=== PATIENT | female | born 1955 | race Caucasian/White ===

== ENCOUNTER 2016-09-28 21:50 | Emergency (ER) | payer OTHER ==
[~2016-09-28] VITALS: Ht 154.9 cm; Wt 100.7 kg
[~2016-09-28 21:50] MED LIST: ASPIRIN81 M1 PO; CARAFATE1 GM PO; CELEBREX200 MG PO; ENDOCET 5-3251 EACH PO; ESCITALOPRAM OX20 MG PO; Ecotrin PO; FLECTOR 1.3%1 PATC1 TD; FLEXERIL10 MG PO; FORTAMET1000 M1 PO; GLIPIZIDE XL10 M1 PO; GLUCOPHAGE1000 MG PO; GLUCOTROL XL10 MG PO; HYDROCHLOROTHIA25 MG PO; INDOCIN25 MG PO; JANUVIA100 MG PO; LISINOPRIL-HCT1 EAC3 PO; LO-DOSE ASPIRIN81 M1 PO; LOPRESSOR100 M1 PO; LOPRESSOR50 MG PO; MELOXICAM15 MG PO; METOPROLOL SUCC25 MG PO; NAPROSYN500 MG PO; NEURONTIN100 MG PO; NIFEDIPINE ER30 MG PO; NORCO 7.5/321 TABLET PO; PANTOPRAZOLE SO40 MG PO; PEPCID20 MG PO; PRILOSEC20 MG PO; PROAIR HFA8.5 GM IH; PROZAC40 MG PO; REGLAN10 M1 PO; SIMVASTATIN40 M1 PO; TOPROL XL100 MG PO; TRAMADOL HCL50 MG PO; TYLENOL REGULA325 MG PO; ULTRAM50 MG PO; VALIUM2 MG PO; VITAMIN D31000 UNIT PO; WELLBUTRIN SR150 MG PO; WELLBUTRIN XL300 MG PO; WELLBUTRIN75 MG; ZESTORETIC 20-1 EAC1 PO; ZOCOR20 MG PO; ZOCOR40 MG PO; lisinopril/HCTZ PO
[2016-09-28 22:38] LABS: HEMATOCRIT 43.2 % (36.0-46.0); MCH 28.9 PG (29.0-34.0); MCHC 33.1 G/DL (30.0-36.0); MCV 87.3 FL (83-99); MEAN PLAT.VOLUME 10.8 uM^3 (9.5-12.4); PLATELET COUNT 275 K/uL (156-360); RBC DIS.WIDTH-CV 13.1 % (11.8-14.6); RBC DIS.WIDTH-SD 41.5 % (39-53); RED BLOOD COUNT 4.95 M/uL (3.80-5.20); WHITE BLOOD COUNT 12.4 K/uL (4.1-10.2)
[2016-09-28 22:47] LABS: CHLORIDE 104 mEq/L (99-109); POTASSIUM 3.4 mEq/L (3.7-5.4); SODIUM 143 mEq/L (136-147)
[2016-09-28 22:49] LABS: GLUCOSE 116 mg/dL (70-99)
[2016-09-28 22:51] LABS: ANION GAP 10 MEQ/L (2-14); TOTAL BILIRUBIN 0.3 mg/dL (0.0-1.0)
[2016-09-28 22:53] LABS: ALKALINE PHOSPHATASE 61 IU/L (3-129); GFR ESTIMATE (CALCULATED) > 59 mL/min/
[2016-09-28 22:54] LABS: UREA NITROGEN (BUN) 13 mg/dL (9-23)
[2016-09-29 00:07] LABS: ADD MIUA? NO; BILIRUBIN NEGATIVE; BLOOD NEGATIVE; COLOR YELLOW ((YELLOW)); GLUCOSE (STRIP) NEGATIVE; KETONES NEGATIVE; LEUKOCYTES NEGATIVE; NITRITE NEGATIVE; PROTEIN (STRIP) NEGATIVE; SPECIFIC GRAVITY 1.017 (1.000-1.030); UCUL ADDED? NO; UROBILINOGEN 0.2 MG/DL (0.2-1.0)
[2016-09-29 03:08] LABS: TROP-I INTERPRETATION NEGATIVE; TROPONIN-I < 0.01 ng/mL (0.0-0.30)
[2016-09-29] MEDS ORDERED: PROTONIX40 MG PO (03:14)
[2016-09-29 03:20] VITALS: BP 133/83
[2016-09-29] MEDS ORDERED: MAALOX ADVANCE355 ML PO (03:20)
== END 2016-09-29 03:27 | disposition home or self-care (01) ==
LOC: EME 21:50
PROVIDERS: Emergency Medicine
DX: K27.9 Peptic ulcer, site unspecified, unspecified as acute or chronic, without hemorrhage or perforation (principal); R10.9 Unspecified abdominal pain; R07.9 Chest pain, unspecified; J45.909 Unspecified asthma, uncomplicated; E11.9 Type 2 diabetes mellitus without complications; E78.5 Hyperlipidemia, unspecified; I10 Essential (primary) hypertension; K21.9 Gastro-esophageal reflux disease without esophagitis; Z79.84 Long term (current) use of oral hypoglycemic drugs
CPT/HCPCS: 74177; 80053; 81003; 84484; 85027; 93005; 99281; 99285

== ENCOUNTER 2016-11-12 15:08 | Emergency (ER) | payer OTHER ==
[~2016-11-12] VITALS: Ht 154.9 cm; Wt 99.7 kg
[~2016-11-12 15:08] MED LIST changes: +MAALOX ADVANCE355 ML PO; +PROTONIX40 MG PO
[2016-11-12 15:47] LABS: MCH 29.3 PG (29.0-34.0); MCHC 33.7 G/DL (30.0-36.0); MCV 86.9 FL (83-99); PLATELET COUNT 258 K/uL (156-360); RBC DIS.WIDTH-CV 12.9 % (11.8-14.6); RBC DIS.WIDTH-SD 40.7 % (39-53); RED BLOOD COUNT 4.95 M/uL (3.80-5.20); WHITE BLOOD COUNT 9.5 K/uL (4.1-10.2)
[2016-11-12 15:58] LABS: CHLORIDE 104 mEq/L (99-109); SODIUM 142 mEq/L (136-147)
[2016-11-12 15:59] LABS: GLUCOSE 96 mg/dL (70-99)
[2016-11-12 16:01] LABS: ANION GAP 13 MEQ/L (2-14)
[2016-11-12 16:03] LABS: GFR ESTIMATE (CALCULATED) > 59 mL/min/
[2016-11-12 16:04] LABS: UREA NITROGEN (BUN) 14 mg/dL (9-23)
[2016-11-12 18:19] LABS: ERTH.SED.RATE 12 MM/HR (0-30)
[2016-11-12] MEDS ORDERED: FIORICET 50-301 EACH PO (18:55)
[2016-11-12] MEDS ORDERED: VALIUM2 MG PO (18:55)
[2016-11-12 19:07] VITALS: BP 140/85
[2016-11-13 09:41] LABS: LYME DISEASE SEROLOGY SCREEN NEGATIVE (NEGATIVE)
== END 2016-11-12 19:08 | disposition home or self-care (01) ==
LOC: EME 15:08
PROVIDERS: Physician Assistant
DX: R51 Headache (principal); M50.30 Other cervical disc degeneration, unspecified cervical region; M54.12 Radiculopathy, cervical region; E11.9 Type 2 diabetes mellitus without complications; E78.5 Hyperlipidemia, unspecified; I10 Essential (primary) hypertension; Z88.6 Allergy status to analgesic agent; Z87.891 Personal history of nicotine dependence
CPT/HCPCS: 70450; 71020; 72125; 80048; 85027; 85651; 86618; 93005; 99281; 99284; J2930

== ENCOUNTER 2016-11-16 21:49 | Emergency (ER) | payer OTHER ==
[~2016-11-16] VITALS: Ht 154.9 cm; Wt 101.5 kg
[~2016-11-16 21:49] MED LIST changes: +FIORICET 50-301 EACH PO
[2016-11-16] MEDS ORDERED: MOBIC7.5 MG PO (23:45)
[2016-11-16] MEDS ORDERED: CEFDINIR300 MG PO (23:45)
[2016-11-16 23:53] VITALS: BP 155/92
== END 2016-11-16 23:55 | disposition home or self-care (01) ==
LOC: EME 21:49
DX: M79.1 Myalgia (principal); H66.92 Otitis media, unspecified, left ear; E11.40 Type 2 diabetes mellitus with diabetic neuropathy, unspecified; H60.92 Unspecified otitis externa, left ear; R51 Headache; M54.2 Cervicalgia; M54.9 Dorsalgia, unspecified; W01.10XA Fall on same level from slipping, tripping and stumbling with subsequent striking against unspecified object, initial encounter; R42 Dizziness and giddiness; I10 Essential (primary) hypertension; E78.5 Hyperlipidemia, unspecified; J45.909 Unspecified asthma, uncomplicated; Z79.84 Long term (current) use of oral hypoglycemic drugs; Z87.891 Personal history of nicotine dependence
CPT/HCPCS: 99281; 99284

== ENCOUNTER 2017-02-06 00:50 | Emergency (ER) | payer OTHER ==
[~2017-02-06] VITALS: Ht 154.9 cm; Wt 99.4 kg
[~2017-02-06 00:50] MED LIST changes: +CEFDINIR300 MG PO; +MOBIC7.5 MG PO
[2017-02-06 01:55] LABS: ADD MIUA? NO; BILIRUBIN NEGATIVE; BLOOD NEGATIVE; COLOR STRAW ((YELLOW)); GLUCOSE (STRIP) NEGATIVE; KETONES NEGATIVE; LEUKOCYTES NEGATIVE; NITRITE NEGATIVE; PROTEIN (STRIP) NEGATIVE; SPECIFIC GRAVITY 1.009 (1.000-1.030); UCUL ADDED? NO; UROBILINOGEN 0.2 MG/DL (0.2-1.0)
[2017-02-06 02:07] LABS: HEMATOCRIT 40.5 % (36.0-46.0); MCH 28.9 PG (29.0-34.0); MCHC 33.3 G/DL (30.0-36.0); MCV 86.7 FL (83-99); MEAN PLAT.VOLUME 10.1 uM^3 (9.5-12.4); PLATELET COUNT 223 K/uL (156-360); RBC DIS.WIDTH-CV 13.1 % (11.8-14.6); RED BLOOD COUNT 4.67 M/uL (3.80-5.20); WHITE BLOOD COUNT 9.3 K/uL (4.1-10.2)
[2017-02-06 02:17] LABS: AMYLASE 41 IU/L (1-118); CHLORIDE 105 mEq/L (99-109); POTASSIUM 3.6 mEq/L (3.7-5.4); SODIUM 138 mEq/L (136-147)
[2017-02-06 02:19] LABS: GLUCOSE 75 mg/dL (70-99)
[2017-02-06 02:20] LABS: ANION GAP 8 MEQ/L (2-14)
[2017-02-06 02:21] LABS: TOTAL BILIRUBIN 0.5 mg/dL (0.0-1.0)
[2017-02-06 02:22] LABS: ALKALINE PHOSPHATASE 65 IU/L (3-129)
[2017-02-06 02:23] LABS: GFR ESTIMATE (CALCULATED) > 59 mL/min/
[2017-02-06 02:24] LABS: UREA NITROGEN (BUN) 21 mg/dL (9-23)
[2017-02-06 02:26] LABS: LIPASE 40 U/L (1.0-51.0)
[2017-02-06] MEDS ORDERED: BENTYL20 MG PO (03:39)
[2017-02-06] MEDS ORDERED: MOTRIN800 MG PO (03:39)
[2017-02-06] MEDS ORDERED: ZOFRAN4 MG PO (03:39)
[2017-02-06] MEDS ORDERED: LIDODERM 5% P1 PATCH TD (03:56)
[2017-02-06 04:45] VITALS: BP 123/70
== END 2017-02-06 04:45 | disposition home or self-care (01) ==
LOC: EME 00:50
PROVIDERS: Nurse Practitioner Family
DX: R10.11 Right upper quadrant pain (principal); R11.2 Nausea with vomiting, unspecified; R19.7 Diarrhea, unspecified; M25.511 Pain in right shoulder; K76.0 Fatty (change of) liver, not elsewhere classified; I10 Essential (primary) hypertension; E78.5 Hyperlipidemia, unspecified; J45.909 Unspecified asthma, uncomplicated; E11.9 Type 2 diabetes mellitus without complications; Z79.84 Long term (current) use of oral hypoglycemic drugs; Z90.710 Acquired absence of both cervix and uterus; Z87.891 Personal history of nicotine dependence
CPT/HCPCS: 76705; 80053; 81003; 82150; 83690; 85027; 99281; 99285

== ENCOUNTER 2017-02-14 22:37 | Emergency (ER) | payer OTHER ==
[~2017-02-14] VITALS: Ht 154.9 cm; Wt 101.2 kg
[~2017-02-14 22:37] MED LIST changes: +BENTYL20 MG PO; +LIDODERM 5% P1 PATCH TD; +MOTRIN800 MG PO; +ZOFRAN4 MG PO
[2017-02-14 22:42] VITALS: BP 141/81
[2017-02-14] MEDS ORDERED: VALIUM5 MG PO (23:35)
[2017-02-14] MEDS ORDERED: ULTRAM50 MG PO (23:35)
== END 2017-02-15 00:38 | disposition home or self-care (01) ==
LOC: EME 22:37 → EXP 22:37
DX: G89.29 Other chronic pain (principal); M54.12 Radiculopathy, cervical region; M25.511 Pain in right shoulder; M79.601 Pain in right arm; M54.6 Pain in thoracic spine
CPT/HCPCS: 72070; 99281; 99284; J1885

== ENCOUNTER 2017-02-20 00:48 | Emergency (ER) | payer OTHER ==
[~2017-02-20] VITALS: Ht 154.9 cm; Wt 101.1 kg
[~2017-02-20 00:48] MED LIST changes: +VALIUM5 MG PO
[2017-02-20] MEDS ORDERED: PERCOCET 5/31 TABLET PO (03:22)
[2017-02-20 03:31] VITALS: BP 162/82
== END 2017-02-20 03:31 | disposition home or self-care (01) ==
LOC: EME 00:48
DX: M54.12 Radiculopathy, cervical region (principal); I10 Essential (primary) hypertension; E78.00 Pure hypercholesterolemia, unspecified; E11.9 Type 2 diabetes mellitus without complications; Z79.84 Long term (current) use of oral hypoglycemic drugs; Z98.1 Arthrodesis status; Z87.891 Personal history of nicotine dependence
CPT/HCPCS: 71020; 99281; 99284

== ENCOUNTER 2017-03-04 21:50 | Observation (INO) | payer OTHER ==
[~2017-03-04] VITALS: Ht 154.9 cm; Wt 102.8 kg
[~2017-03-04 21:50] MED LIST changes: +PERCOCET 5/31 TABLET PO; -ZOCOR20 MG PO
[2017-03-04 23:10] LABS: EOSINOPHIL (%) 3.8 % (0-5); EOSINOPHIL COUNT 0.4 K/uL (0-0.3); HEMATOCRIT 38.7 % (36.0-46.0); IMMATURE GRANULOCYTE (%) 0.3 % (0.0-0.7); INSTRUMENT ABS NEUTROPHIL CT 6.7 K/uL; LYMPHOCYTE COUNT 2.3 K/uL (1.0-2.8); MCH 28.8 PG (29.0-34.0); MCHC 33.1 G/DL (30.0-36.0); MEAN PLAT.VOLUME 10.5 uM^3 (9.5-12.4); MONOCYTE (%) 4.4 % (3-12); MONOCYTE COUNT 0.4 K/uL (0-0.8); NEUTROPHIL COUNT 6.7 K/uL (1.8-6.4); PLATELET COUNT 182 K/uL (156-360); RBC DIS.WIDTH-CV 12.7 % (11.8-14.6); RBC DIS.WIDTH-SD 40.3 % (39-53); RED BLOOD COUNT 4.45 M/uL (3.80-5.20); WHITE BLOOD COUNT 9.8 K/uL (4.1-10.2)
[2017-03-04 23:17] LABS: D-DIMER ELISA < 150.00 ng/mLDDU (<230)
[2017-03-04 23:19] LABS: CHLORIDE 102 mEq/L (99-109); POTASSIUM 3.6 mEq/L (3.7-5.4); SODIUM 141 mEq/L (136-147)
[2017-03-04 23:21] LABS: GLUCOSE 248 mg/dL (70-99)
[2017-03-04 23:22] LABS: ANION GAP 15 MEQ/L (2-14)
[2017-03-04 23:25] LABS: GFR ESTIMATE (CALCULATED) > 59 mL/min/
[2017-03-04 23:26] LABS: UREA NITROGEN (BUN) 16 mg/dL (9-23)
[2017-03-04 23:33] LABS: TROP-I INTERPRETATION NEGATIVE; TROPONIN-I < 0.01 ng/mL (0.0-0.30)
[2017-03-05] MEDS ORDERED: IBUPROFEN800 MG PO (00:30)
[2017-03-05] MEDS ORDERED: TRAMADOL HCL50 MG PO (00:31)
[2017-03-05] MEDS ORDERED: LYRICA50 MG PO (00:31)
[2017-03-05 01:43] LABS: TOTAL BILIRUBIN 0.3 mg/dL (0.0-1.0)
[2017-03-05 01:44] LABS: ALKALINE PHOSPHATASE 77 IU/L (3-129)
[2017-03-05 01:47] LABS: DIRECT BILIRUBIN 0.1 mg/dL (0.0-0.3)
[2017-03-05 01:48] LABS: LIPASE 38 U/L (1.0-51.0)
[2017-03-05 02:42] VITALS: BP 184/93
[2017-03-05 04:00] VITALS: BP 152/88
[2017-03-05 06:15] LABS: TROP-I INTERPRETATION NEGATIVE; TROPONIN-I < 0.01 ng/mL (0.0-0.30)
[2017-03-05 07:17] VITALS: BP 174/84
[2017-03-05 07:46] LABS: POINT-OF-CARE METER ID UU14162513
[2017-03-05 10:19] LABS: ALKALINE PHOSPHATASE 68 IU/L (3-129); DIRECT BILIRUBIN 0.1 mg/dL (0.0-0.3); TOTAL BILIRUBIN 0.4 MG/DL (0.0-1.0)
[2017-03-05 12:16] LABS: POINT-OF-CARE METER ID UU14162513
[2017-03-05 12:40] LABS: TROP-I INTERPRETATION NEGATIVE; TROPONIN-I 0.02 ng/mL (0.0-0.30)
[2017-03-05 12:42] VITALS: BP 171/97
[2017-03-05 13:23] VITALS: BP 170/86
[2017-03-05] MEDS ORDERED: LIDOCARE1 EACH TP (13:54)
[2017-03-05] MEDS ORDERED: ENDOCET 5-3251 EACH PO (13:54)
== END 2017-03-05 14:44 | disposition home or self-care (01) ==
LOC: EME 21:50 → EDOF 03-05 01:02 → ENRESERV 03-05 01:04 → 5WEST 03-05 02:25
PROVIDERS: Emergency Medicine; Hospitalist
DX: M54.12 Radiculopathy, cervical region (principal); R07.89 Other chest pain; E11.9 Type 2 diabetes mellitus without complications; I10 Essential (primary) hypertension; E78.5 Hyperlipidemia, unspecified; E66.9 Obesity, unspecified; F32.9 Major depressive disorder, single episode, unspecified; F41.9 Anxiety disorder, unspecified; Z98.1 Arthrodesis status; Z90.710 Acquired absence of both cervix and uterus; Z82.49 Family history of ischemic heart disease and other diseases of the circulatory system; Z83.3 Family history of diabetes mellitus; Z83.49 Family history of other endocrine, nutritional and metabolic diseases; Z80.0 Family history of malignant neoplasm of digestive organs; J45.909 Unspecified asthma, uncomplicated; K21.9 Gastro-esophageal reflux disease without esophagitis; Z87.891 Personal history of nicotine dependence; R16.0 Hepatomegaly, not elsewhere classified
CPT/HCPCS: 71020; 71275; 76705; 80048; 80076; 82948; 83690; 83880; 84484; 85025; 85379; 93005; 99281; 99285; G0378

== ENCOUNTER 2017-09-18 05:57 | Emergency (ER) | payer OTHER ==
[~2017-09-18] VITALS: Ht 154.9 cm; Wt 102.6 kg
[~2017-09-18 05:57] MED LIST changes: +IBUPROFEN800 MG PO; +LIDOCARE1 EACH TP; +LYRICA50 MG PO
[2017-09-18 07:19] LABS: BASOPHIL (%) 0.4 % (0-1); EOSINOPHIL (%) 4.1 % (0-5); EOSINOPHIL COUNT 0.3 K/uL (0-0.3); HEMATOCRIT 39.6 % (36.0-46.0); HEMOGLOBIN 13.2 G/DL (11.9-15.5); IMMATURE GRANULOCYTE (%) 0.4 % (0.0-0.7); LYMPHOCYTE (%) 32.6 % (15-42); LYMPHOCYTE COUNT 2.5 K/uL (1.0-2.8); MCHC 33.3 G/DL (30.0-36.0); MCV 84.1 FL (83-99); MONOCYTE COUNT 0.5 K/uL (0-0.8); NEUTROPHIL (%) 55.5 % (45-76); NEUTROPHIL COUNT 4.3 K/uL (1.8-6.4); PLATELET COUNT 166 K/uL (156-360); RBC DIS.WIDTH-CV 13.7 % (11.8-14.6); RBC DIS.WIDTH-SD 42.2 % (39-53); RED BLOOD COUNT 4.71 M/uL (3.80-5.20); WHITE BLOOD COUNT 7.8 K/uL (4.1-10.2)
[2017-09-18 07:29] LABS: CHLORIDE 102 mEq/L (99-109); POTASSIUM 3.3 mEq/L (3.7-5.4); SODIUM 142 mEq/L (136-147)
[2017-09-18 07:31] LABS: GLUCOSE 145 mg/dL (70-99)
[2017-09-18 07:35] LABS: CREATININE 0.7 mg/dL (0.6-1.3); GFR ESTIMATE (CALCULATED) > 59 mL/min/
[2017-09-18 07:36] LABS: UREA NITROGEN (BUN) 7 mg/dL (9-23)
[2017-09-18 08:01] LABS: TROP-I INTERPRETATION NEGATIVE; TROPONIN-I < 0.01 ng/mL (0.0-0.30)
[2017-09-18] MEDS ORDERED: TESSALON PERLE100 MG PO (09:34)
[2017-09-18] MEDS ORDERED: PROVENTIL HFA6.7 GM IH (09:34)
[2017-09-18 10:32] VITALS: BP 156/101
== END 2017-09-18 10:33 | disposition home or self-care (01) ==
LOC: EME 05:57
PROVIDERS: Emergency Medicine
DX: J40 Bronchitis, not specified as acute or chronic (principal); E11.9 Type 2 diabetes mellitus without complications; Z79.84 Long term (current) use of oral hypoglycemic drugs; E78.5 Hyperlipidemia, unspecified; I10 Essential (primary) hypertension; F32.9 Major depressive disorder, single episode, unspecified; F41.9 Anxiety disorder, unspecified; K21.9 Gastro-esophageal reflux disease without esophagitis; Z88.5 Allergy status to narcotic agent; Z87.891 Personal history of nicotine dependence
CPT/HCPCS: 71045; 80048; 84484; 85025; 93005; 99281; 99284